=== PATIENT | female | born 1965 | race Caucasian/White ===

== ENCOUNTER 2023-09-02 15:44 | Emergency (ER) | payer SELFPAY ==
[~2023-09-02] VITALS: Ht 172.7 cm; Wt 73.0 kg
[2023-09-02 15:52] VITALS: O2SAT 98
[2023-09-02] MEDS: SODIUM CHLORIDE 0.9% 1,000 ML IV ONE (16:35)
[2023-09-02 16:37] LABS: BASOPHILS % 1.1 % (0.0-2.0); DIFFERENTIAL COMMENT 1; EOSINOPHILS % 4.1 % (0.0-5.0); HEMATOCRIT. 27.6 % (36.0-48.0); HEMOGLOBIN. 8.7 g/dL (12.0-16.0); LYMPHOCYTES % 16.9 % (20.0-50.0); MEAN CORPUSCULAR HEMOGLOBIN 21.3 pg (28.0-32.0); MEAN CORPUSCULAR HGB CONC 31.4 g/dL (31.0-37.0); MEAN CORPUSCULAR VOLUME 67.8 fL (81.0-99.0); MEAN PLATELET VOLUME 6.8 fl (7.4-10.4); MONOCYTES % 7.5 % (2.0-8.0); NEUTROPHILS % 70.4 % (40.0-76.0); PLATELET 596 x1000/uL (130-400); RED BLOOD CELL COUNT 4.07 mill/uL (4.2-5.4); RED CELL DISTRIBUTION WIDTH 18.3 % (11.6-14.6); WHITE BLOOD COUNT 9.4 x1000/uL (4.5-11.0)
[2023-09-02 16:38] LABS: ADD RBC MORPHOLOGY YES
[2023-09-02 16:45] LABS: CHLORIDE 107 mEq/L (98-107); POTASSIUM 4.3 mEq/L (3.5-5.1); SODIUM 138 mEq/L (136-145)
[2023-09-02 16:46] LABS: CALCIUM 9.1 mg/dL (8.7-10.4); CARBON DIOXIDE 23 mEq/L (21-32)
[2023-09-02 16:51] LABS: CREATININE 0.8 mg/dL (0.6-1.0); GLUCOSE 94 mg/dL (70-105); UREA NITROGEN BLOOD 10 mg/dL (9-23)
[2023-09-02 17:42] LABS: HYPOCHROMASIA 2+; MICROCYTOSIS 3+; PLATELET ESTIMATE INCREASED
[2023-09-02 17:43] LABS: ANISOCYTOSIS 1+; OVALOCYTES 1+
[2023-09-02 17:51] LABS: PROTHROMBIN TIME 11.4 sec (9.6-11.0)
[2023-09-02 18:59] VITALS: BP 104/51; PULSE 81; RESP 11; TEMP 98.3
== END 2023-09-02 19:15 | disposition home or self-care (01) ==
LOC: ER 15:44
DX: R55 Syncope and collapse (principal); R53.1 Weakness; Z86.73 Personal history of transient ischemic attack (TIA), and cerebral infarction without residual deficits
CPT/HCPCS: 99285; 96360; 71045; 80048; 85025; 85610; 36415; 93005; J7030